=== PATIENT | female | born 1995 | race Caucasian/White ===

== ENCOUNTER 2023-04-28 19:40 | Emergency (ER) | payer OTHER ==
[2023-04-28 20:42] LABS: Pregnancy Test - Urine (BHCG) Negative (Negative); Pregu Control Background? CLEAR/WHITE (CLR/WHITE); Pregu Control Bar Appear? YES (CONTROL BAR); Specific Gravity 1.005 (1.002-1.036)
== END 2023-04-28 21:35 | disposition home or self-care (01) ==
LOC: BURERS 19:40
DX: J01.00 Acute maxillary sinusitis, unspecified (principal)
CPT/HCPCS: 71046; 81025

== ENCOUNTER 2023-11-15 12:45 | Emergency (ER) | payer OTHER ==
[2023-11-15] MEDS ORDERED: predniSONE 20 MG TAB ONE (13:06)
== END 2023-11-15 13:14 | disposition home or self-care (01) ==
LOC: BURERS 12:45
DX: R21 Rash and other nonspecific skin eruption (principal); E11.9 Type 2 diabetes mellitus without complications
CPT/HCPCS: 99282; J7512